=== PATIENT | male | born 1990 | race Caucasian/White ===

== ENCOUNTER 2018-05-15 11:53 | Emergency (ER) | payer BC ==
[~2018-05-15] VITALS: Ht 185.4 cm; Wt 74.8 kg
--- NOTE | 2018-05-15 12:03 | PHYS DOC ---
MODERATE SEDATION ASSESSMENT RISKS/ALTERNATIVES Risks/Alternatives Risks and alternatives of this type of sedation and procedure discussed with: RISK/ALTERNATIVES: Patient H & P ON CHART H & P H & P on chart and reviewed for co-morbid conditions and appropriate labs. H&P ON CHART: Yes STATUS PREG STATUS ASSESSED: N/A MEDS/ALLERGIES REVIEWED Meds/Allergies Reviewed Medications and Allergies including time and route of recently administered narcotics and sedatives. MEDS/ALLERGIES REVIEWED: Yes ASA RATING ASA RATING: I AIRWAY ASSESSMENT Airway Assessment Airway patency, oral function limitations, presence of caps, crowns, dentures, partials, and ability to extend neck assessed. AIRWAY ASSESSMENT: Yes MALLAMPATI SCORE MALLAMPATI SCORE: I PRE-SEDATION ASSESSMENT PRE-SEDATION ASSESSMENT: Yes LESLIE BELLA MD May 15, 2018 12:03
--- NOTE | 2018-05-15 12:04 | PHYS DOC ---
Adult General HPI HPI Patient is a 27 year old m with cc of shoulder pain slipped offf porch landed on outstretched hand no cp no sob no headache no neck pain just severe throbbing right shoulder pain. nonradiating no pmh no meds no allergies Review of Systems Review of Systems limited by severity of pain Current Medications Current Medications Current Medications Medications (Trade) Dose Ordered Sig/Kishore Start Time Stop Time Status Last Admin Dose Admin Propofol (Diprivan) 100 mg 1X ONCE 05/15/18 12:15 05/15/18 12:17 DC 05/15/18 12:32 100 MG Allergies Allergies Allergies Coded Allergies Type Severity Reaction Last Updated Verified No Known Drug Allergies 05/15/18 No Physical Exam Physical Exam Constitutional: Well developed, well nourished, PAINFUL distress, non-toxic appearance. [] HENT: Normocephalic, atraumatic, bilateral external ears normal, oropharynx moist, no oral exudates, nose normal. [] Eyes: PERRLA, EOMI, conjunctiva normal, no discharge. [] Neck: Normal range of motion, no tenderness, supple, no stridor. [] Cardiovascular:Heart rate regular rhythm, no murmur [] Lungs & Thorax: Bilateral breath sounds clear to auscultation [] Abdomen: Bowel sounds normal, soft, no tenderness, no masses, no pulsatile masses. [] Skin: Warm, dry, no erythema, no rash. [] Back: No tenderness, no CVA tenderness. [] Extremities: right shoudler deformity noted Neurologic: Alert and oriented X 3, normal motor function, normal sensory function, no focal deficits noted. [] Psychologic: Affect normal, judgement normal, mood normal. [] Current Patient Data Vital Signs Vital Signs Date Time Temp Pulse Resp B/P (MAP) Pulse Ox O2 Delivery O2 Flow Rate FiO2 05/15/18 12:58 46 18 140/66 (90) 100 Room Air 05/15/18 12:56 98.6 2.0 98.6 2.0 98.6 EKG EKG [] Radiology/Procedures Radiology/Procedures [] Impressions: DINGS: The humerus head now projects within the glenoid. The acromioclavicular joint grossly appears unremarkable. IMPRESSION: Post reduction right shoulder joint. Electronically signed by: John Ariza MD (05/15/2018 12:59 PM) [facility] DICTATED and SIGNED BY: JOHN ARIZA MD DATE: 05/15/18 0882 Course & Med Decision Making Course & Med Decision Making Pertinent Labs and Imaging studies reviewed. (See chart for details) Procedure note: Closed reduction of right shoulder dislocation with conscious sedation. Timeout was performed: I confirmed the side of the injury. Patient was given propofol for sedation. Patient was monitored throughout. Time of sedation total time in the room was 6 minutes. Patient no desaturations was monitored with end-tidal CO2 throughout total 60 mg of propofol. The shoulder was reduced using typical manual traction technique. Patient required only minimal traction of the humerus resulting in a successful reduction and then a shoulder immobilizer was applied. Confirmed postreduction x-ray. Patient was neurovascularly intact following the procedure. Patient was given follow-up instructions for orthopedics and he says that he has a shoulder specialist in mind that he wants to see. He was also given the local number for local orthopedist as well. No other injury identified on trauma evaluation head neck chest and abdomen were all atraumatic this was an isolated injury. Dragon Disclaimer Dragon Disclaimer This electronic medical record was generated, in whole or in part, using a voice recognition dictation system. Departure Departure Impression: Primary Impression: Dislocation of right shoulder joint Disposition: HOME, SELF-CARE Condition: STABLE LESLIE BELLA MD May 15, 2018 12:04
[2018-05-15] MEDS ORDERED: PROPOFOL 10 MG/ML (20ML) VIAL. IV ONE (12:15)
--- NOTE | 2018-05-15 12:27 | RAD ---
Right shoulder, 3 views, 05/15/2018: HISTORY: Fall, pain There is anterior dislocation of the humeral head relative to the glenoid fossa of the scapula. No fracture is evident. IMPRESSION: Anterior shoulder dislocation. Electronically signed by: Chandra Santizo MD (05/15/2018 12:24 PM) [facility]
[2018-05-15 12:58] VITALS: BP 140/66
--- NOTE | 2018-05-15 13:02 | RAD ---
Examination: 2 views of the right shoulder HISTORY: History of postreduction. COMPARISON: None available FINDINGS: The humerus head now projects within the glenoid. The acromioclavicular joint grossly appears unremarkable. IMPRESSION: Post reduction right shoulder joint. Electronically signed by: John Ariza MD (05/15/2018 12:59 PM) [place] [id number]
== END 2018-05-15 13:25 | disposition home or self-care (01) ==
LOC: ER 11:53
DX: S43.004A Unspecified dislocation of right shoulder joint, initial encounter (principal); W01.0XXA Fall on same level from slipping, tripping and stumbling without subsequent striking against object, initial encounter; Y93.89 Activity, other specified; Y92.89 Other specified places as the place of occurrence of the external cause; Y99.8 Other external cause status
CPT/HCPCS: 23650; 73030; 99284; J2704